=== PATIENT | female | born 1990 | race Caucasian/White ===

== ENCOUNTER 2018-08-26 16:35 | Inpatient (IN) ==
[2018-08-26] MEDS ORDERED: ONDANSETRON 4 MG/2 ML VIAL IV PRN (16:50)
[2018-08-26] MEDS ORDERED: LACTATED RINGERS 1,000 ML IV PRN (16:50)
[2018-08-26] MEDS ORDERED: BUTORPHANOL 2 MG/ML VIAL IV PRN (16:50)
[2018-08-26] MEDS ORDERED: hydrOXYzine HCL 25 MG/1 ML VIAL IM PRN (16:58)
[2018-08-26] MEDS ORDERED: FAMOTIDINE 20 MG/2 ML VIAL IV ONE (16:58)
[2018-08-26] MEDS ORDERED: diphenhydrAMINE 50 MG/1 ML VIAL IV PRN ×2 (16:58)
[2018-08-26] MEDS ORDERED: PROMETHAZINE 25 MG/1 ML VIAL IM ONE (16:58)
[2018-08-26] MEDS ORDERED: ePHEDrine 50 MG/ML AMP IV PRN (16:58)
[2018-08-26] MEDS ORDERED: CITRIC ACID/SODIUM CITRATE 30 ML UDCUP PO ONE (16:58)
[2018-08-26] MEDS ORDERED: ONDANSETRON 4 MG/2 ML VIAL IV ONE (16:58)
[2018-08-26] MEDS ORDERED: NALOXONE 0.4 MG/ML VIAL IV PRN (16:58)
[2018-08-26] MEDS ORDERED: OXYTOCIN/LR 20 UNIT/1,000 ML BAG IV SCH (17:00)
[2018-08-26] MEDS ORDERED: fentaNYL 2 MCG/ROPIV 0.2% EPID 100 ML EPIDURAL SCH (17:00)
[2018-08-26 17:15] LABS: Basophils % 0.4 % (0.0-0.8); Eosinophils # 0.2 10*3/uL (0.0-0.87); Eosinophils % 1.9 % (0.00-10.9); Hematocrit 35.4 VOL% (35.7-47.0); Hemoglobin 11.9 GM/DL (12.0-16.0); Immature Granulocytes % 0.6 %; Immature Granulocytes Absolute 0.06 #; Lymphocytes # 1.5 10*3/uL (1.4-4.0); Lymphocytes % 13.8 % (21.3-54.2); Mean Corpuscular HGB Conc 33.6 GM/DL (32-36); Mean Corpuscular Hemoglobin 31 PG (27-34); Mean Platelet Volume 10.1 FL (9.6-12.0); Monocytes # 0.7 10*3/uL (0.11-0.8); Monocytes % 6.4 % (1.7-12.7); Neutrophils # 8.4 10*3/uL (1.4-7.4); Neutrophils % 76.9 % (38.7-73.9); Platelet Count 184 T/CUMM (130-400); Red Blood Count 3.89 MC/CUMM (3.8-5.5); Red Cell Distribution Width 13.6 % (9.3-17.3); White Blood Count 10.9 T/CUMM (4-12)
[2018-08-26 18:26] LABS: HIV Antigen/Antibody Result Nonreactive (Nonreactive); Hepatitis B Surface Ag Quant 0.43 Index; Hepatitis B Surface Ag Result Negative (Negative); Rubella Antibody IgG > 500.0 IU/ML
[2018-08-26] MEDS: LACTATED RINGERS 1,000 ML IV SCH ×2 (18:50→22:37)
[2018-08-26 20:28] LABS: Apearance,Urine CLEAR (Clear); Bacteria,Urine Occasional /HPF (Few); Bilirubin,Urine Negative (Negative); Blood, Urine Negative (Negative); Glucose,Urine (UA) Negative (Negative); Ketones,Urine 5 mg/dL (Negative); Nitrite,Urine Negative (Negative); Protein,Urine Negative; Urine Color Colorless (Yellow); Urine Specific Gravity 1.003 (1.001-1.035); Urine Urobilinogen < 2.0 EU/DL (0.2-1.0); WBC,Urine 1 /HPF (0-6)
[2018-08-27] MEDS ORDERED: ceFAZolin 2,000 MG in PREMIX 1 EACH IV ONE (04:08)
[2018-08-27] MEDS ORDERED: LIDOCAINE MPF 2% /EPI 20 ML VIAL ONE (04:48)
[2018-08-27] MEDS ORDERED: oxyCODONE/ACETAMINOPHEN 5-325 MG TABLET PO PRN (06:04)
[2018-08-27] MEDS ORDERED: ONDANSETRON 4 MG/2 ML VIAL IV PRN (06:04)
[2018-08-27] MEDS ORDERED: ACETAMINOPHEN 325 MG TABLET PO PRN (06:04)
[2018-08-27] MEDS ORDERED: OXYTOCIN/LR 20 UNIT/1,000 ML BAG IV ONE (06:04)
[2018-08-27] MEDS ORDERED: WITCH HAZEL PADS 100/JAR TOP PRN (06:04)
[2018-08-27] MEDS ORDERED: DIPH/TET/ACEL PERT BOOSTER VACCINE 0.5 ML VIAL IM ONE (06:04)
[2018-08-27] MEDS ORDERED: MEASLES/MUMPS/RUBELLA VACCINE 0.5 ML VIAL SUBCUT ONE (06:04)
[2018-08-27] MEDS ORDERED: BISACODYL 10 MG SUPP RECTAL PRN (06:04)
[2018-08-27] MEDS ORDERED: BENZOCAINE 20%/MENTHOL 0.5% SPRAY 56 GM CAN TOP PRN (06:04)
[2018-08-27] MEDS ORDERED: LANOLIN 50% CREAM 0.3 OZ TUBE TOP PRN (06:04)
[2018-08-27] MEDS ORDERED: RHO(D) IMMUNE GLOBULIN 300 MCG SYRINGE IM ONE (06:04)
[2018-08-27] MEDS ORDERED: HYDROCORTISONE 2.5% RECTAL CREAM 30 GM TUBE TOP PRN (06:04)
[2018-08-27] MEDS ORDERED: PHENYLEPHRINE 1 MG/10 ML SYRINGE IV ONE (06:06)
[2018-08-27] MEDS ORDERED: MORPHINE 10 MG/10 ML VIAL ONE (06:07)
[2018-08-27] MEDS ORDERED: MIDAZOLAM 2 MG/2 ML VIAL ONE (06:09)
[2018-08-27 06:22] LABS: Cord Arterial Blood HCO3 19.4 MMOL/L
[2018-08-27 06:25] LABS: Cord Venous Blood HCO3 21.4 MMOL/L; Cord Venous Blood PCO2 44.1 MMHG
[2018-08-27] MEDS: DOCUSATE SODIUM 100 MG CAPSULE PO SCH ×2 (09:02→21:58)
[2018-08-27] MEDS: ceFAZolin 1,000 MG in SYRINGE 1 EACH IV SCH ×2 (11:09→17:41)
[2018-08-27] MEDS: IBUPROFEN 800 MG TABLET PO PRN (16:38)
[2018-08-27] MEDS: oxyCODONE/ACETAMINOPHEN 5-325 MG TABLET PO PRN (16:38)
[2018-08-27] MEDS ORDERED: SIMETHICONE CHEW 80 MG TABLET PO PRN (21:01)
[2018-08-27] MEDS: MAGNESIUM HYDROXIDE SUSP 30 ML UDCUP PO PRN (21:58)
[2018-08-28] MEDS: IBUPROFEN 800 MG TABLET PO PRN ×3 (04:18→19:38)
[2018-08-28] MEDS: oxyCODONE/ACETAMINOPHEN 5-325 MG TABLET PO PRN ×3 (04:19→19:38)
[2018-08-28 04:23] LABS: Basophils # 0.1 10*3/uL (0.0-0.2); Basophils % 0.3 % (0.0-0.8); Eosinophils % 0.2 % (0.00-10.9); Hemoglobin 8.9 GM/DL (12.0-16.0); Immature Granulocytes % 0.7 %; Immature Granulocytes Absolute 0.13 #; Lymphocytes # 0.9 10*3/uL (1.4-4.0); Lymphocytes % 4.8 % (21.3-54.2); Mean Corpuscular HGB Conc 32.1 GM/DL (32-36); Mean Corpuscular Hemoglobin 30 PG (27-34); Mean Corpuscular Volume 93.3 FL (87-102); Mean Platelet Volume 10.3 FL (9.6-12.0); Monocytes # 0.6 10*3/uL (0.11-0.8); Monocytes % 3.6 % (1.7-12.7); Neutrophils # 15.9 10*3/uL (1.4-7.4); Neutrophils % 90.4 % (38.7-73.9); Platelet Count 143 T/CUMM (130-400); Red Cell Distribution Width 13.8 % (9.3-17.3); White Blood Count 17.6 T/CUMM (4-12)
[2018-08-28 04:28] LABS: Hematocrit 27.7 VOL% (35.7-47.0); Red Blood Count 2.97 MC/CUMM (3.8-5.5)
[2018-08-28 06:13] LABS: Anisocytosis Slight; Band Neutrophils 11 % (0-10); Lymphocytes 4 % (20-55); Macrocytosis Slight; Platelet Estimate Decreased; Segmented Neutrophils 83 % (50-85); Total Cells Counted 100
[2018-08-28] MEDS: DOCUSATE SODIUM 100 MG CAPSULE PO SCH ×3 (08:55→20:00)
[2018-08-28] MEDS ORDERED: RHO(D) IMMUNE GLOBULIN 300 MCG SYRINGE IM ONE (09:27)
[2018-08-28] MEDS: MAGNESIUM HYDROXIDE SUSP 30 ML UDCUP PO PRN (19:38)
[2018-08-29 03:54] VITALS: BP 125/70
[2018-08-29] MEDS: IBUPROFEN 800 MG TABLET PO PRN (07:58)
[2018-08-29] MEDS: oxyCODONE/ACETAMINOPHEN 5-325 MG TABLET PO PRN (07:58)
[2018-08-29] MEDS: DOCUSATE SODIUM 100 MG CAPSULE PO SCH (09:19)
== END 2018-08-29 10:45 | disposition home or self-care (01) | DRG 540 ==
LOC: N.LDOUT 16:35 → N.LD 16:37 → N.OB 08-27 16:30 → N.LD 08-28 17:44
PROVIDERS: ADMIT Specialist; ATTEND Specialist
PROC: LDCSECT (ICD-10-PCS; 2018-08-27 05:00)

== ENCOUNTER 2018-08-30 12:34 | Inpatient (IN) ==
[2018-08-30] MEDS ORDERED: oxyCODONE/ACETAMINOPHEN 5-325 MG TABLET PO PRN (13:11)
[2018-08-30] MEDS ORDERED: ACETAMINOPHEN 500 MG TABLET PO PRN (13:12)
[2018-08-30] MEDS ORDERED: MAGNESIUM HYDROXIDE SUSP 30 ML UDCUP PO PRN (13:15)
[2018-08-30 15:38] LABS: Basophils % 0.3 % (0.0-0.8); Eosinophils % 0.3 % (0.00-10.9); Hematocrit 28.4 VOL% (35.7-47.0); Hemoglobin 8.9 GM/DL (12.0-16.0); Immature Granulocytes % 0.7 %; Immature Granulocytes Absolute 0.11 #; Lymphocytes % 6.7 % (21.3-54.2); Mean Corpuscular HGB Conc 31.3 GM/DL (32-36); Mean Corpuscular Hemoglobin 30 PG (27-34); Monocytes # 1.1 10*3/uL (0.11-0.8); Monocytes % 7.3 % (1.7-12.7); Neutrophils # 13.2 10*3/uL (1.4-7.4); Neutrophils % 84.7 % (38.7-73.9); Platelet Count 187 T/CUMM (130-400); Red Blood Count 2.99 MC/CUMM (3.8-5.5); Red Cell Distribution Width 13.9 % (9.3-17.3); White Blood Count 15.6 T/CUMM (4-12)
[2018-08-30 16:00] LABS: Albumin 2.1 G/DL (3.4-5.0); Bilirubin,Total 0.4 MG/DL (0.2-1.0); Calcium 8.5 MG/DL (8.5-10.1); Osmolality,Calculated 278.3 MOS/KG (273-304); Potassium 3.7 MMOL/L (3.5-5.1); Total Protein 6.4 G/DL (6.4-8.3)
[2018-08-30 16:06] LABS: Lymphocytes 12 % (20-55); Segmented Neutrophils 87 % (50-85); Total Cells Counted 100
[2018-08-30 16:07] LABS: Anisocytosis Slight
[2018-08-30 16:09] LABS: Platelet Estimate Adequate
[2018-08-30 16:11] LABS: Macrocytosis Slight
[2018-08-30] MEDS: oxyCODONE/ACETAMINOPHEN 5-325 MG TABLET PO PRN ×2 (17:11→23:16)
[2018-08-30] MEDS: LACTATED RINGERS 1,000 ML IV SCH (17:39)
[2018-08-30] MEDS: CLINDAMYCIN INJ 900 MG in PREMIX 1 EACH IV SCH (17:39)
[2018-08-30] MEDS: PIPERACILLIN/TAZOBACTAM 3,375 MG in SODIUM CHLORIDE 0.9% 100 ML IV SCH (18:11)
[2018-08-31] MEDS: CLINDAMYCIN INJ 900 MG in PREMIX 1 EACH IV SCH ×2 (00:36→08:46)
[2018-08-31] MEDS: PIPERACILLIN/TAZOBACTAM 3,375 MG in SODIUM CHLORIDE 0.9% 100 ML IV SCH ×3 (02:03→21:18)
[2018-08-31] MEDS: oxyCODONE/ACETAMINOPHEN 5-325 MG TABLET PO PRN ×3 (06:45→23:49)
[2018-08-31] MEDS: valACYclovir 500 MG TABLET PO SCH ×2 (12:48→21:17)
[2018-08-31] MEDS: VANCOMYCIN INJ 1,500 MG in SODIUM CHLORIDE 0.9% 500 ML IV SCH (13:37)
[2018-08-31] MEDS ORDERED: CITRIC ACID/SODIUM CITRATE 30 ML UDCUP PO STA (13:52)
[2018-08-31] MEDS ORDERED: FAMOTIDINE 20 MG TABLET PO STA (13:53)
[2018-08-31] MEDS: CHLORHEXIDINE 4% SOLN 118 ML BOTTLE TOP SCH (14:49)
[2018-08-31] MEDS ORDERED: ONDANSETRON 4 MG/2 ML VIAL IV PRN (16:47)
[2018-08-31] MEDS ORDERED: PROPOFOL 200 MG/20 ML VIAL IV ONE (16:49)
[2018-08-31] MEDS ORDERED: SEVOFLURANE 1 UNIT/15 MINUTE INH ONE (16:49)
[2018-08-31] MEDS ORDERED: fentaNYL 100 MCG/2 ML VIAL ONE (16:50)
[2018-08-31] MEDS ORDERED: SUCCINYLCHOLINE 200 MG/10 ML VIAL ONE (16:50)
[2018-08-31] MEDS ORDERED: PHENYLEPHRINE 1 MG/10 ML SYRINGE IV ONE (16:50)
[2018-08-31] MEDS ORDERED: ONDANSETRON 4 MG/2 ML VIAL ONE ×2 (16:50→17:02)
[2018-08-31] MEDS ORDERED: MIDAZOLAM 2 MG/2 ML VIAL ONE (16:50)
[2018-08-31] MEDS ORDERED: LACTATED RINGERS 1,000 ML IV ONE (16:50)
[2018-08-31] MEDS ORDERED: HYDROmorphone 2 MG/1 ML VIAL ONE (17:02)
[2018-08-31] MEDS: HYDROmorphone 2 MG/1 ML VIAL IV PRN ×3 (17:05→17:16)
[2018-08-31] MEDS: LACTATED RINGERS 1,000 ML IV SCH (21:16)
[2018-09-01] MEDS: VANCOMYCIN INJ 1,500 MG in SODIUM CHLORIDE 0.9% 500 ML IV SCH ×2 (01:47→12:34)
[2018-09-01] MEDS: LACTATED RINGERS 1,000 ML IV SCH ×3 (02:52→21:29)
[2018-09-01] MEDS: PIPERACILLIN/TAZOBACTAM 3,375 MG in SODIUM CHLORIDE 0.9% 100 ML IV SCH ×3 (05:11→21:27)
[2018-09-01] MEDS ORDERED: BISACODYL 10 MG SUPP RECTAL PRN (07:50)
[2018-09-01] MEDS: valACYclovir 500 MG TABLET PO SCH ×2 (08:14→21:27)
[2018-09-01] MEDS: oxyCODONE/ACETAMINOPHEN 5-325 MG TABLET PO PRN ×3 (08:14→18:45)
[2018-09-01] MEDS: CHLORHEXIDINE 4% SOLN 118 ML BOTTLE TOP SCH (12:35)
[2018-09-01 13:10] LABS: Calcium 7.5 MG/DL (8.5-10.1); Osmolality,Calculated 276.4 MOS/KG (273-304)
[2018-09-02] MEDS: oxyCODONE/ACETAMINOPHEN 5-325 MG TABLET PO PRN ×4 (00:25→18:15)
[2018-09-02] MEDS: VANCOMYCIN INJ 1,500 MG in SODIUM CHLORIDE 0.9% 500 ML IV SCH (01:35)
[2018-09-02] MEDS: PIPERACILLIN/TAZOBACTAM 3,375 MG in SODIUM CHLORIDE 0.9% 100 ML IV SCH (05:13)
[2018-09-02 05:41] LABS: Calcium 8.3 MG/DL (8.5-10.1); Osmolality,Calculated 280.1 MOS/KG (273-304); Potassium 3.6 MMOL/L (3.5-5.1)
[2018-09-02] MEDS: CHLORHEXIDINE 4% SOLN 118 ML BOTTLE TOP SCH (13:00)
[2018-09-02] MEDS ORDERED: clonazePAM 0.5 MG TABLET PO PRN (13:22)
[2018-09-02] MEDS: LORazepam 0.5 MG TABLET PO PRN (13:40)
[2018-09-02] MEDS: AMPICILLIN/SULBACTAM 3,000 MG in SODIUM CHLORIDE 0.9% 100 ML IV SCH ×2 (13:40→18:15)
[2018-09-02] MEDS: valACYclovir 500 MG TABLET PO SCH ×2 (13:40→21:32)
[2018-09-02] MEDS: LACTATED RINGERS 1,000 ML IV SCH ×2 (13:45→13:51)
[2018-09-02] MEDS: DOCUSATE SODIUM 100 MG CAPSULE PO SCH (21:32)
[2018-09-03] MEDS: oxyCODONE/ACETAMINOPHEN 5-325 MG TABLET PO PRN ×3 (00:14→13:13)
[2018-09-03] MEDS: AMPICILLIN/SULBACTAM 3,000 MG in SODIUM CHLORIDE 0.9% 100 ML IV SCH ×3 (00:47→13:12)
[2018-09-03] MEDS: LACTATED RINGERS 1,000 ML IV SCH ×2 (06:06→17:55)
[2018-09-03] MEDS: DOCUSATE SODIUM 100 MG CAPSULE PO SCH (09:00)
[2018-09-03] MEDS: valACYclovir 500 MG TABLET PO SCH (09:00)
[2018-09-03] MEDS: CHLORHEXIDINE 4% SOLN 118 ML BOTTLE TOP SCH (09:02)
[2018-09-03] MEDS: LORazepam 0.5 MG TABLET PO PRN (13:24)
[2018-09-03 16:54] VITALS: BP 129/77
== END 2018-09-03 17:10 | disposition home health service (06) | DRG 561 ==
LOC: N.5E → OBSVTOIN 13:13
PROVIDERS: ADMIT Obstetrics & Gynecology; ATTEND Obstetrics & Gynecology